=== PATIENT | female | born 1950 | race Caucasian/White ===

== ENCOUNTER 2023-08-10 13:16 | Observation (INO) | payer MEDICARE, OTHER, SELFPAY ==
[~2023-08-10 13:16] MED LIST: Iopamidol 370 76% 100 ML VIAL ONE
[2023-08-10 15:27] LABS: ALT (SGPT) 15 U/L (8-55); AST (SGOT) 22 U/L (5-34); Albumin 4.1 g/dL (3.4-4.8); Alkaline Phosphatase 64 U/L (40-110); Anion Gap 14 mmol/L (10-20); BUN (Urea Nitrogen) 13 mg/dL (9.8-20.1); Bilirubin, Total 0.4 mg/dL (0.2-1.2); CK (CPK) 128 U/L (29-168); Calc. Creatinine Clearance 0 mL/min (70-130); Calcium 9.1 mg/dL (7.8-10.44); Carbon Dioxide 21 mmol/L (23-31); Chloride 108 mmol/L (98-107); Estimated GFR 68; Globulin 2.1 g/dL (2.4-3.5); Glucose 153 mg/dL (83-110); Potassium 3.6 mmol/L (3.5-5.1); Protein, Total 6.2 g/dL (5.8-8.1); Sodium 139 mmol/L (136-145)
[2023-08-10 15:28] LABS: #Eosinphils 0.1 10x3/uL (0.0-0.5); #Monocytes 0.5 10x3/uL (0.0-1.1); #Neutrophils 4.8 10x3/uL (1.5-8.4); %Basophils 0.4 % (0.0-2.0); %Eosinophils 1.8 % (0.0-6.0); %Lymphocytes 27.6 % (18.0-47.0); %Monocytes 6.4 % (0.0-10.0); %Neutrophils 63.4 % (40.0-75.0); Hematocrit 36.8 % (34.9-44.5); Hemoglobin 12.3 g/dL (12.0-15.5); Mean Corpuscular HGB CONC 33.4 g/dL (32.0-36.0); Mean Corpuscular Hemoglobin 29.4 pg (27.0-33.0); Mean Platelet Volume 9.3 fl (7.4-10.4); Platelet Count 277 10x3/uL (150-450); RBC Distribution Width 12.8 % (11.5-14.5); Red Blood Cell (RBC) Count 4.18 10x6/uL (3.90-5.03); White Blood Cell (WBC) Count 7.6 10x3/uL (3.5-10.5)
[2023-08-10 15:33] LABS: Troponin I Less than 0.010 ng/mL (< 0.028)
[2023-08-10] MEDS ORDERED: Aspirin Chewable 81 MG TAB ONE (15:54)
[2023-08-10 19:16] LABS: Troponin I Less than 0.010 ng/mL (< 0.028)
[2023-08-10 19:20] VITALS: BMI 37.0
[2023-08-10] MEDS ORDERED: Nitroglycerin 0.4 MG TAB (25 Tab Bottle) SL PRN (21:22)
[2023-08-10 21:41] LABS: Magnesium 2.1 mg/dL (1.6-2.6)
[2023-08-10] MEDS: Lactated Ringer's 1,000 ML IV SCH (21:41)
[2023-08-10 21:46] LABS: Troponin I Less than 0.010 ng/mL (< 0.028)
[2023-08-11 04:10] VITALS: BP 144/87; TEMP 98.6
[2023-08-11 04:25] LABS: #Eosinphils 0.2 10x3/uL (0.0-0.5); #Monocytes 0.8 10x3/uL (0.0-1.1); #Neutrophils 5.6 10x3/uL (1.5-8.4); %Basophils 0.3 % (0.0-2.0); %Eosinophils 1.8 % (0.0-6.0); %Lymphocytes 25.2 % (18.0-47.0); %Neutrophils 63.4 % (40.0-75.0); Hematocrit 36.3 % (34.9-44.5); Hemoglobin 12.3 g/dL (12.0-15.5); Mean Corpuscular HGB CONC 33.9 g/dL (32.0-36.0); Mean Corpuscular Hemoglobin 29.9 pg (27.0-33.0); Mean Corpuscular Volume 88.1 fl (81.6-98.3); Mean Platelet Volume 9.4 fl (7.4-10.4); Platelet Count 262 10x3/uL (150-450); Red Blood Cell (RBC) Count 4.12 10x6/uL (3.90-5.03); White Blood Cell (WBC) Count 8.8 10x3/uL (3.5-10.5)
[2023-08-11 04:47] LABS: Anion Gap 16 mmol/L (10-20); BUN (Urea Nitrogen) 11 mg/dL (9.8-20.1); Calc. Creatinine Clearance 94 mL/min (70-130); Calcium 8.9 mg/dL (7.8-10.44); Carbon Dioxide 19 mmol/L (23-31); Cardiac Risk 3.5 (Less than 4.5); Chloride 110 mmol/L (98-107); Cholesterol 145 mg/dl (< 200 Desired); Estimated GFR 73; Glucose 92 mg/dL (83-110); HDL Cholesterol 41 mg/dL (>60 Neg Risk); LDL Cholesterol, Calculated 60 mg/dL; Potassium 3.8 mmol/L (3.5-5.1); Sodium 141 mmol/L (136-145); Triglycerides 222 mg/dL (Less than 150)
[2023-08-11] MEDS: Levothyroxine Sodium 125 MCG TAB PO SCH (06:02)
[2023-08-11] MEDS: Ezetimibe 10 MG TAB PO SCH (09:50)
[2023-08-11] MEDS: Aspirin Chewable 81 MG TAB PO SCH (09:50)
[2023-08-11] MEDS: Enoxaparin 40 MG (0.4 mL) SYRINGE SC SCH (09:50)
[2023-08-11] MEDS ORDERED: Enoxaparin 40 MG (0.4 mL) SYRINGE ONE (09:56)
[2023-08-11] MEDS ORDERED: Aspirin Chewable 81 MG TAB ONE (09:56)
[2023-08-11] MEDS ORDERED: Rosuvastatin 20 MG TAB PO SCH (21:00)
== END 2023-08-11 17:00 | disposition home or self-care (01) ==
LOC: CSHERS 13:16 → CSHERHOLD 17:42
PROVIDERS: ADMIT Internal Medicine; ATTEND Internal Medicine
PROC: B246YZZ Ultrasonography of Right and Left Heart using Other Contrast (ICD-10-PCS; principal; 2023-08-10)
DX: R07.89 Other chest pain (principal); I25.10 Atherosclerotic heart disease of native coronary artery without angina pectoris; I10 Essential (primary) hypertension; E78.5 Hyperlipidemia, unspecified; K50.90 Crohn's disease, unspecified, without complications; E03.9 Hypothyroidism, unspecified; F17.210 Nicotine dependence, cigarettes, uncomplicated; R61 Generalized hyperhidrosis; R91.1 Solitary pulmonary nodule; I95.0 Idiopathic hypotension; Z95.5 Presence of coronary angioplasty implant and graft; Z88.8 Allergy status to other drugs, medicaments and biological substances; Z79.899 Other long term (current) drug therapy
CPT/HCPCS: 36415; 71045; 71275; 80048; 80053; 80061; 82550; 83605; 83735; 83880; 84439; 84443; 84484; 85025; 85379; 93005; 93010; 93306; J1650; J7120; Q9967

== ENCOUNTER 2023-10-30 08:48 | Outpatient (CLI) | payer MEDICARE | END 2023-10-30 08:49 | disposition home or self-care (01) | LOC: CSHCT 08:48 | PROVIDERS: ATTEND Urology | DX: N32.89 Other specified disorders of bladder (principal); R31.29 Other microscopic hematuria; Z87.448 Personal history of other diseases of urinary system; R91.8 Other nonspecific abnormal finding of lung field | CPT/HCPCS: 74178 ==

== ENCOUNTER 2023-12-01 14:46 | Outpatient (CLI) | payer MEDICARE ==
[~2023-12-01 14:46] MED LIST changes: -Iopamidol 370 76% 100 ML VIAL ONE; +Magnevist 469MG/ML 20 ML VIAL ONE
== END 2023-12-01 14:47 | disposition home or self-care (01) ==
LOC: CSHMRI 14:46
PROVIDERS: ATTEND Student in an Organized Health Care Education/Training Program
DX: R74.01 Elevation of levels of liver transaminase levels (principal); K86.89 Other specified diseases of pancreas; K57.10 Diverticulosis of small intestine without perforation or abscess without bleeding; K76.0 Fatty (change of) liver, not elsewhere classified
CPT/HCPCS: 74183; A9579

== ENCOUNTER 2023-12-04 15:12 | Outpatient (CLI) | payer MEDICARE | END 2023-12-04 15:13 | disposition home or self-care (01) | LOC: CSHCP 15:12 | PROVIDERS: ATTEND Internal Medicine | DX: R06.09 Other forms of dyspnea (principal) | CPT/HCPCS: 94618 ==